=== PATIENT | male | born 1955 | race Caucasian/White ===

== ENCOUNTER 2017-11-07 12:15 | Emergency (ER) | payer OTHER, SELFPAY ==
[2017-11-07] VITALS (10 sets, daily range): BP systolic 97–149; BP diastolic 56–82; PULSE 70–128; RESP 14–19; TEMP 37.1; O2SAT 95–99
--- NOTE | 2017-11-07 12:26 | ED.ARRPALP ---
HPI - Arrhythmia/Palpitations General Chief Complaint: Arrhythmia/Palpitations Stated Complaint: Accelerated heart rate Time Seen by Provider: 11/07/17 12:18 Source: patient Mode of arrival: ambulatory Limitations: no limitations History of Present Illness HPI narrative: Patient presents to the emergency department today from an outside clinic for evaluation of palpitations, racing heart as well as chest pressure, dizziness, lightheadedness, and shortness of breath. He denies any history of the same other than the past few days to weeks. He denies any significant, caffeine, nicotine, or alcohol intake. MD complaint: rapid heart beat and heart racing Onset (ago): day(s) Duration: constant Severity: moderate Associated symptoms: chest pain, shortness of breath and nausea Related Data Previous Rx's Medication Instructions Recorded aspirin 81 mg PO DAILY #90 tab 11/07/17 metoprolol tartrate [Lopressor] 25 mg PO BID #30 tab 11/07/17 Allergies Allergy/AdvReac Type Severity Reaction Status Date / Time bacitracin AdvReac Verified 11/07/17 12:24 [From Neosporin ([id number])] neomycin AdvReac Verified 11/07/17 12:24 [From Neosporin ([id number])] polymyxin B AdvReac Verified 11/07/17 12:24 [From Neosporin ([id number])] Review of Systems Review of Systems All systems reviewed & are unremarkable except as noted in HPI and below Constitutional Denies chills, Denies fever(s), Denies lethargy and Denies weakness ENT Ears, Nose, Mouth, and Throat: Denies change in voice, Denies neck pain and Denies sore throat Cardiovascular Reports chest pain, Reports rapid heart rate, Reports irregular heart rhythm, Reports lightheadedness, Reports palpitations, Reports dyspnea, Denies dyspnea on exertion and Denies orthopnea Respiratory Denies cough, Reports dyspnea, Denies dyspnea on exertion and Denies wheezing Gastrointestinal Gastrointestinal: Denies abdominal pain, Denies change in bowel habits, Denies diarrhea, Denies nausea and Denies vomiting Musculoskeletal Denies neck pain Neurologic Denies confusion and Denies weakness Psychiatric Denies anxiety, Denies confusion, Denies depression, Denies homicidal ideation and Denies suicidal ideation Endocrine Reports palpitations Hematologic/Lymphatic Denies easy bruising Allergic/Immunologic Denies wheezing Exam Initial Vital Signs Initial Vital Signs: Vital Signs Temperature 98.7 F 11/07/17 12:24 Pulse Rate 128 H 11/07/17 12:24 Respiratory Rate 18 11/07/17 12:24 Blood Pressure 149/82 H 11/07/17 12:24 Pulse Oximetry 98 11/07/17 12:24 Const General: cooperative and well developed Nutritional Appearance: well nourished Orientation: alert, awake, oriented x3 and not confused HENSC Head: normocephalic and atraumatic Ears: external ears normal and TM's normal bilaterally Nose: external nose normal and No nasal discharge Face and sinus: sinuses nontender, face symmetric, no sinus tenderness and No dry mucous membranes Mouth: oral mucosae normal and moist mucous membranes Teeth and gingiva: dentition normal Throat: tonsils normal and uvula midline Eyes General: appearance normal, both eyes and all related structures Eyelids: eyelids normal Conjunctivae: conjunctivae normal Sclera: sclerae normal Pupils: PERRL EOM: EOM intact bilaterally Neck Neck: normal visual inspection, trachea midline, No lymphadenopathy, No midline deformity and No JVD Lymphatic: No lymphedema Resp Effort & Inspection: normal respiratory effort, able to speak in complete sentences, no respiratory distress and no use of accessory muscles Auscultation: clear to auscultation bilaterally, no rales, no rhonchi and no wheezes Cardio Rate: tachycardic Rhythm: abnormal rhythm Heart Sounds: no click, no gallops, no murmurs and no rubs Pulses: normal peripheral pulses GI Inspection: non-distended Palpation: soft, no hepatosplenomegaly, No guarding, No pulsatile mass and No tender Auscultation: normal bowel sounds Skin General: no rashes or lesions noted, No jaundice and No petechiae Neuro General: alert, oriented x3 and gait normal Speech: speech normal Extrem General: full ROM, no clubbing, cyanosis or edema, no pedal edema and no calf tenderness Course Orders Ordered: ED Orders 11/07/17 12:21 Complete Blood Count AUTO DIFF Stat Thyroid Stimulating Hormone Stat 11/07/17 12:27 XR chest 1V Stat 11/07/17 12:29 Basic Metabolic Panel Stat Magnesium Stat Troponin with CK Cardiac Panel Stat Discontinued Medications Diltiazem HCl (Cardizem) 10 mg IV NOW ONE Stop: 05/17/18 12:28 Last Admin: 11/07/17 12:34 Dose: 10 mg Sodium Chloride (Normal Saline 0.9%) 1,000 mls @ 150 mls/hr IV CONT GABRIELE Last Infusion: 11/07/17 13:54 Dose: 0 mls/hr Admin: 11/07/17 12:34 Dose: 150 mls/hr Reevaluation(s) Reevaluation #1: Patient had a decrease in heart rate into the 80s and 90s after Cardizem was administered but still was in atrial flutter, but now at a 4-1 rate. He still had chest pain, pressure and felt terrible. Given his ongoing pain we elected to set up for procedural sedation and electrocardioversion Reevaluation #2: Prior to cardioversion a modified Valsalva maneuver was performed and the patient had a conversion to a normal sinus rhythm with a rate in the 70s Vital Signs - 8 hr 11/07/17 12:24 11/07/17 12:32 11/07/17 12:40 Temperature 98.7 F Pulse Rate 128 H 125 H 118 H Respiratory Rate 18 18 18 Blood Pressure 149/82 H Blood Pressure [Left Arm] 115/69 101/56 L Pulse Oximetry 98 99 98 11/07/17 12:45 11/07/17 12:50 11/07/17 12:55 Temperature Pulse Rate 108 H 111 H 96 H Respiratory Rate 18 14 14 Blood Pressure Blood Pressure [Left Arm] 108/72 112/66 97/61 Pulse Oximetry 99 11/07/17 13:01 11/07/17 13:11 11/07/17 13:29 Temperature Pulse Rate 94 H 118 H 77 Respiratory Rate 19 18 17 Blood Pressure Blood Pressure [Left Arm] 109/69 106/62 104/69 Pulse Oximetry 95 99 98 11/07/17 13:53 Temperature Pulse Rate 70 Respiratory Rate 18 Blood Pressure Blood Pressure [Left Arm] 103/66 Pulse Oximetry MDM - Arrhythmia/Palpitations Differential Diagnosis Differential diagnosis: Likely palpitations, anxiety, artial fibrillation and artial flutter Medical Records Attestation: I reviewed the patient's medical records. Lab Data Attestation: I reviewed the patient's lab results. Result diagrams: 11/07/17 12:21 11/07/17 12:29 Lab Results 05/17/18 05/17/18 05/17/18 Range/Units 12:21 12:21 12:29 WBC 6.2 (4.5-11.0) X10^3/uL RBC 4.38 L (4.5-5.9) X10^6/uL Hgb 14.1 (13.5-17.5) g/dL Hct 39.5 L (41-53) % MCV 90.1 (80-100) fL MCH 32.2 (26-34) PG MCHC 35.7 (30-36) % RDW 13.5 (11.6-14.8) % Plt Count 437 H (150-400) X10^3/uL Neut % (Auto) 68.6 (50-75) % Lymph % (Auto) 15.9 L (25-40) % [place] % (Auto) 12.6 (3-14) % Eos % (Auto) 2.3 (2-4) % Baso % (Auto) 0.6 (0-2) % Neut # (Auto) 4300 (7797-1166) /uL Sodium 140 (137-145) mmol/L Potassium 3.9 (3.4-5.1) mmol/L Chloride 102.0 (98-107) mmol/L Carbon Dioxide 28.0 (22-32) mmol/L BUN 15.0 (9-20) mg/dL Creatinine 0.80 (0.66-1.25) mg/dL Estimated GFR > 60.0 (>60) mL/min BUN/Creatinine Ratio 18.8 (6-22) Glucose 85 (80-110) mg/dL Calcium 9.2 (8.4-10.2) mg/dL Magnesium 2.4 H (1.6-2.3) mg/dL Total Creatine Kinase 103 (55-170) U/L CK-MB (CK-2) 1.49 (<2.37) ng/mL CK-MB (CK-2) Rel Index 1.4 L (1.5-5.0) % Troponin I < 0.012 (0.01-0.034) ng/mL TSH 1.72 (0.47-4.68) uIU/mL ECG Data Attestation: I personally reviewed and interpreted this ECG as follows: Interpretation: Atrial Flutter 140s. No ischemia/ectopy. No ST segmental or T-wave inversions consistent with ischemia EKG 2: Normal sinus rhythm in the 70s. No ST segmental or T-wave inversions. Improved from prior Discharge Plan Departure Patient Disposition: Home, Self-Care Clinical Impression: Atrial flutter Discharge Date/Time: 11/07/17 14:14 Interventions: ED Discharge Assessment Last Done: 11/07/17 14:13 Instructions: Atrial Flutter Activity Restrictions/Additional Instructions: *You have been diagnosed with [ atrial flutter ] *What to do: Call the electronic science teacher office listed below *Take medications as directed *Return to ER if you should have any new, worsening or concerning symptoms Prescriptions: New metoprolol tartrate [Lopressor] 50 mg tablet 25 mg PO BID Qty: 30 RF: 0 aspirin 81 mg tablet,chewable 81 mg PO DAILY Qty: 90 RF: 0 Referrals: Butch Herring MD [Physician] -
--- NOTE | 2017-11-07 12:27 | DI.RAD.S_ITS ---
PROCEDURE: XR CHEST 1V INDICATIONS: chest pain TECHNIQUE: One view of the chest was acquired. COMPARISON: None. FINDINGS: Surgical changes and devices: None. Lungs and pleura: No pleural effusions or pneumothorax. Lungs are clear. Mediastinum: Mediastinal contours appear normal. Heart size is borderline enlarged. Bones and chest wall: No suspicious bony lesions. Overlying soft tissues appear unremarkable. IMPRESSION: No acute cardiopulmonary process is evident. Dictated by: Sancho Rodríguez M.D. on 11/07/2017 at 12:57 Approved by: Sancho Rodríguez M.D. on 11/07/2017 at 12:58
--- NOTE | 2017-11-07 12:27 | DIET.PN ---
pt arrives with ekg that was done by dr montalvo.
[2017-11-07] MEDS: SODIUM CHLORIDE 0.9% 1,000 ML 150 ML IV (12:34)
[2017-11-07] MEDS: dilTIAZem 25 MG/5 ML SDV 10 MG IV (12:34)
[2017-11-07 12:53] LABS: Add Manual Diff / Slide Review NO; Basophils Percent Auto 0.6 % (0-2); Eosinophils Percent Auto 2.3 % (2-4); Hematocrit 39.5 % (41-53); Hemoglobin 14.1 g/dL (13.5-17.5); Lymphocytes Percent Auto 15.9 % (25-40); Mean Corpuscular HGB Conc 35.7 % (30-36); Mean Corpuscular Hemoglobin 32.2 PG (26-34); Mean Corpuscular Volume 90.1 fL (80-100); Monocytes Percent Auto 12.6 % (3-14); Neutrophils Absolute Auto 4300 /uL (3000-5900); Neutrophils Percent Auto 68.6 % (50-75); Platelet Count 437 X10^3/uL (150-400); Red Blood Cell Count 4.38 X10^6/uL (4.5-5.9); Red Cell Distribution Width 13.5 % (11.6-14.8); White Blood Cell Count 6.2 X10^3/uL (4.5-11.0)
[2017-11-07 13:00] LABS: BUN Creatinine Ratio 18.8 (6-22); Calcium 9.2 mg/dL (8.4-10.2); Creatine Kinase 103 U/L (55-170); Estimated Glomerular Filt Rate > 60.0 mL/min (>60); Glucose 85 mg/dL (80-110); HEMOLYSIS < 15 (0-50); Magnesium 2.4 mg/dL (1.6-2.3); Potassium 3.9 mmol/L (3.4-5.1); Sodium 140 mmol/L (137-145)
[2017-11-07 13:12] LABS: Troponin I < 0.012 ng/mL (0.01-0.034)
[2017-11-07 13:14] LABS: CKMB % Relative Index 1.4 % (1.5-5.0); Creatine Kinase MB 1.49 ng/mL (<2.37)
[2017-11-07 13:38] LABS: Thyroid Stimulating Hormone 1.72 uIU/mL (0.47-4.68)
--- NOTE | 2017-11-07 15:10 | ED_ITS ---
HPI - Arrhythmia/Palpitations General Chief Complaint: Arrhythmia/Palpitations Stated Complaint: Accelerated heart rate Time Seen by Provider: 11/07/17 12:18 Source: patient Mode of arrival: ambulatory Limitations: no limitations History of Present Illness HPI narrative: Patient presents to the emergency department today from an outside clinic for evaluation of palpitations, racing heart as well as chest pressure, dizziness, lightheadedness, and shortness of breath. He denies any history of the same other than the past few days to weeks. He denies any significant, caffeine, nicotine, or alcohol intake. MD complaint: rapid heart beat and heart racing Onset (ago): day(s) Duration: constant Severity: moderate Associated symptoms: chest pain, shortness of breath and nausea Related Data Previous Rx's Medication Instructions Recorded aspirin 81 mg PO DAILY #90 tab 11/07/17 metoprolol tartrate [Lopressor] 25 mg PO BID #30 tab 11/07/17 Allergies Allergy/AdvReac Type Severity Reaction Status Date / Time bacitracin AdvReac Verified 11/07/17 12:24 [From Neosporin ([id number])] neomycin AdvReac Verified 11/07/17 12:24 [From Neosporin ([id number])] polymyxin B AdvReac Verified 11/07/17 12:24 [From Neosporin ([id number])] Review of Systems Review of Systems All systems reviewed & are unremarkable except as noted in HPI and below Constitutional Denies chills, Denies fever(s), Denies lethargy and Denies weakness ENT Ears, Nose, Mouth, and Throat: Denies change in voice, Denies neck pain and Denies sore throat Cardiovascular Reports chest pain, Reports rapid heart rate, Reports irregular heart rhythm, Reports lightheadedness, Reports palpitations, Reports dyspnea, Denies dyspnea on exertion and Denies orthopnea Respiratory Denies cough, Reports dyspnea, Denies dyspnea on exertion and Denies wheezing Gastrointestinal Gastrointestinal: Denies abdominal pain, Denies change in bowel habits, Denies diarrhea, Denies nausea and Denies vomiting Musculoskeletal Denies neck pain Neurologic Denies confusion and Denies weakness Psychiatric Denies anxiety, Denies confusion, Denies depression, Denies homicidal ideation and Denies suicidal ideation Endocrine Reports palpitations Hematologic/Lymphatic Denies easy bruising Allergic/Immunologic Denies wheezing Exam Initial Vital Signs Initial Vital Signs: Vital Signs Temperature 98.7 F 11/07/17 12:24 Pulse Rate 128 H 11/07/17 12:24 Respiratory Rate 18 11/07/17 12:24 Blood Pressure 149/82 H 11/07/17 12:24 Pulse Oximetry 98 11/07/17 12:24 Const General: cooperative and well developed Nutritional Appearance: well nourished Orientation: alert, awake, oriented x3 and not confused HENPA Head: normocephalic and atraumatic Ears: external ears normal and TM's normal bilaterally Nose: external nose normal and No nasal discharge Face and sinus: sinuses nontender, face symmetric, no sinus tenderness and No dry mucous membranes Mouth: oral mucosae normal and moist mucous membranes Teeth and gingiva: dentition normal Throat: tonsils normal and uvula midline Eyes General: appearance normal, both eyes and all related structures Eyelids: eyelids normal Conjunctivae: conjunctivae normal Sclera: sclerae normal Pupils: PERRL EOM: EOM intact bilaterally Neck Neck: normal visual inspection, trachea midline, No lymphadenopathy, No midline deformity and No JVD Lymphatic: No lymphedema Resp Effort & Inspection: normal respiratory effort, able to speak in complete sentences, no respiratory distress and no use of accessory muscles Auscultation: clear to auscultation bilaterally, no rales, no rhonchi and no wheezes Cardio Rate: tachycardic Rhythm: abnormal rhythm Heart Sounds: no click, no gallops, no murmurs and no rubs Pulses: normal peripheral pulses GI Inspection: non-distended Palpation: soft, no hepatosplenomegaly, No guarding, No pulsatile mass and No tender Auscultation: normal bowel sounds Skin General: no rashes or lesions noted, No jaundice and No petechiae Neuro General: alert, oriented x3 and gait normal Speech: speech normal Extrem General: full ROM, no clubbing, cyanosis or edema, no pedal edema and no calf tenderness Course Orders Ordered: ED Orders 11/07/17 12:21 Complete Blood Count AUTO DIFF Stat Thyroid Stimulating Hormone Stat 11/07/17 12:27 XR chest 1V Stat 11/07/17 12:29 Basic Metabolic Panel Stat Magnesium Stat Troponin with CK Cardiac Panel Stat Discontinued Medications Diltiazem HCl (Cardizem) 10 mg IV NOW ONE Stop: 05/17/18 12:28 Last Admin: 11/07/17 12:34 Dose: 10 mg Sodium Chloride (Normal Saline 0.9%) 1,000 mls @ 150 mls/hr IV CONT GABRIELE Last Infusion: 11/07/17 13:54 Dose: 0 mls/hr Admin: 11/07/17 12:34 Dose: 150 mls/hr Reevaluation(s) Reevaluation #1: Patient had a decrease in heart rate into the 80s and 90s after Cardizem was administered but still was in atrial flutter, but now at a 4- 1 rate. He still had chest pain, pressure and felt terrible. Given his ongoing pain we elected to set up for procedural sedation and electrocardioversion Reevaluation #2: Prior to cardioversion a modified Valsalva maneuver was performed and the patient had a conversion to a normal sinus rhythm with a rate in the 70s Vital Signs - 8 hr 11/07/17 12:24 11/07/17 12:32 11/07/17 12:40 Temperature 98.7 F Pulse Rate 128 H 125 H 118 H Respiratory Rate 18 18 18 Blood Pressure 149/82 H Blood Pressure [Left Arm] 115/69 101/56 L Pulse Oximetry 98 99 98 11/07/17 12:45 11/07/17 12:50 11/07/17 12:55 Temperature Pulse Rate 108 H 111 H 96 H Respiratory Rate 18 14 14 Blood Pressure Blood Pressure [Left Arm] 108/72 112/66 97/61 Pulse Oximetry 99 11/07/17 13:01 11/07/17 13:11 11/07/17 13:29 Temperature Pulse Rate 94 H 118 H 77 Respiratory Rate 19 18 17 Blood Pressure Blood Pressure [Left Arm] 109/69 106/62 104/69 Pulse Oximetry 95 99 98 11/07/17 13:53 Temperature Pulse Rate 70 Respiratory Rate 18 Blood Pressure Blood Pressure [Left Arm] 103/66 Pulse Oximetry MDM - Arrhythmia/Palpitations Differential Diagnosis Differential diagnosis: Likely palpitations, anxiety, artial fibrillation and artial flutter Medical Records Attestation: I reviewed the patient's medical records. Lab Data Attestation: I reviewed the patient's lab results. Result diagrams: 11/07/17 12:21 11/07/17 12:29 Lab Results 05/17/18 05/17/18 05/17/18 Range/Units 12:21 12:21 12:29 WBC 6.2 (4.5-11.0) X10^3/uL RBC 4.38 L (4.5-5.9) X10^6/uL Hgb 14.1 (13.5-17.5) g/dL Hct 39.5 L (41-53) % MCV 90.1 (80-100) fL MCH 32.2 (26-34) PG MCHC 35.7 (30-36) % RDW 13.5 (11.6-14.8) % Plt Count 437 H (150-400) X10^3/uL Neut % (Auto) 68.6 (50-75) % Lymph % (Auto) 15.9 L (25-40) % [place] % (Auto) 12.6 (3-14) % Eos % (Auto) 2.3 (2-4) % Baso % (Auto) 0.6 (0-2) % Neut # (Auto) 4300 (1648-1237) /uL Sodium 140 (137-145) mmol/L Potassium 3.9 (3.4-5.1) mmol/L Chloride 102.0 (98-107) mmol/L Carbon Dioxide 28.0 (22-32) mmol/L BUN 15.0 (9-20) mg/dL Creatinine 0.80 (0.66-1.25) mg/dL Estimated GFR > 60.0 (>60) mL/min BUN/Creatinine Ratio 18.8 (6-22) Glucose 85 (80-110) mg/dL Calcium 9.2 (8.4-10.2) mg/dL Magnesium 2.4 H (1.6-2.3) mg/dL Total Creatine Kinase 103 (55-170) U/L CK-MB (CK-2) 1.49 (<2.37) ng/mL CK-MB (CK-2) Rel Index 1.4 L (1.5-5.0) % Troponin I < 0.012 (0.01-0.034) ng/mL TSH 1.72 (0.47-4.68) uIU/mL ECG Data Attestation: I personally reviewed and interpreted this ECG as follows: Interpretation: Atrial Flutter 140s. No ischemia/ectopy. No ST segmental or T- wave inversions consistent with ischemia EKG 2: Normal sinus rhythm in the 70s. No ST segmental or T-wave inversions. Improved from prior Discharge Plan Departure Patient Disposition: Home, Self-Care Clinical Impression: Atrial flutter Discharge Date/Time: 11/07/17 14:14 Interventions: ED Discharge Assessment Last Done: 11/07/17 14:13 Instructions: Atrial Flutter Activity Restrictions/Additional Instructions: *You have been diagnosed with [ atrial flutter ] *What to do: Call the vending service technician office listed below *Take medications as directed *Return to ER if you should have any new, worsening or concerning symptoms Prescriptions: New metoprolol tartrate [Lopressor] 50 mg tablet 25 mg PO BID Qty: 30 RF: 0 aspirin 81 mg tablet,chewable 81 mg PO DAILY Qty: 90 RF: 0 Referrals: Butch Herring MD [Physician] -
== END 2017-11-07 14:14 | disposition home or self-care (01) ==
PROVIDERS: Emergency Provider Emergency Medicine; Family Provider Family Medicine; PCP Family Medicine
DX: I48.92 Unspecified atrial flutter (principal)
CPT/HCPCS: 36591; 71045; 80048; 82550; 82553; 83735; 84443; 84484; 85025; 93005; 96361; 96374; 99284; 99285

== ENCOUNTER → 2017-11-21 10:20 | Outpatient (CLI) | payer OTHER, SELFPAY ==
--- NOTE | 2017-11-21 | DI.ECHO.S_ITS ---
[facility] +---------+ [facility] +---------+ : : [address] [place] [address] : : : : [id number] : : : : Phone: [phone]+ Echocardiogram Report + + :Name: WOODROW WALKER Study Date: 11/21/2017 Height: 69 in : :[facility] Weight: 165 lb : : Gender: Male BSA: 1.9 m2 : :: 1955 Age: 62 yrs BP: 104/68 mmHg: :Reason For Study: Atrial flutter : : Performed By: Marta Ibarra : :Referring: KEVIN BRANNON : + + Interpretation Summary The left ventricle is normal in size, wall thickness, and systolic function without any focal wall motion abnormalities. The ejection fraction is estimated to be 60-65%. The right ventricle is normal in size and function. Both atria are normal in size. The right ventricular systolic pressure is estimated at 24 mmHg assuming a right atrial pressure of 3 mm Hg. There is no significant valvular heart disease. The echocardiogram is within normal limits. Procedure: A two-dimensional transthoracic echocardiogram with color flow and Doppler was performed. The study quality was technically adequate. There is no prior echocardiogram noted for this patient. The patient was in normal sinus rhythm during the exam. Left Ventricle: The left ventricle is normal in size, wall thickness, and systolic function without any focal wall motion abnormalities. The ejection fraction is estimated to be 60-65%. Assessment of diastolic parameters indicates normal left ventricular diastolic function and normal filling pressures. Right Ventricle: The right ventricle is normal in size and function. Atria: Both atria are normal in size. The interatrial septum is intact with no evidence for an atrial septal defect. Mitral Valve: The mitral valve is normal in structure and function. There is no mitral regurgitation. Aortic Valve: The aortic valve is trileaflet. The aortic valve opens well. No aortic regurgitation is present. Tricuspid Valve: The tricuspid valve is normal in structure and function. There is trace tricuspid regurgitation. The right ventricular systolic pressure is estimated at 24 mmHg assuming a right atrial pressure of 3 mm Hg. Pulmonic Valve: The pulmonic valve is normal in structure and function. There is no pulmonic valvular regurgitation. Great Vessels: The aortic root is normal size. The ascending aorta is mildly enlarged. The IVC is of normal diameter and collapses greater than 50% with a sniff. This suggests a low right atrial pressure of 3 mm Hg. Pericardium/ Pleura There is no pericardial effusion. There is no pleural effusion. MMode/2D Measurements & Calculations LVIDd: 5.4 cm Ao root diam: 3.7 cm LVIDs: 3.6 cm Aortic Jxn: 3.4 cm FS: 32.4 % asc Aorta Diam: 3.9 cm EPSS: 0.77 cm IVSd: 0.94 cm LVPWd: 0.90 cm LV esquivel. diameter/BSA (cm/m^2): 2.8 LV sys. diameter/BSA (cm/m^2): 1.9 LA dimension: 4.0 cm RA long axis: 5.4 cm LA A2 area: 22.4 cm2 RA area: 21.5 cm2 LA A4 area: 22.2 cm2 RA vol: 72.8 ml LA length (vol): 5.9 cm RA : 38.3 ml/m2 LA vol: 71.2 ml IVC diam: 1.9 cm LA vol index: 37.4 ml/m2 RVDd major: 6.6 cm RVD1 (basal): 4.6 cm RVD2 (mid): 3.6 cm Doppler Measurements & Calculations Ao V2 max: 160.9 cm/sec MV E max syed: 81.8 cm/sec Ao V2 mean: 108.7 cm/sec MV A max syed: 74.7 cm/sec Ao max P.4 mmHg MV E/A: 1.1 Ao mean P.5 mmHg Med Peak E' Syed: 7.6 cm/sec Ao V2 VTI: 32.0 cm E/E' med: 10.8 Lat Peak E' Syed: 10.9 cm/sec E/E' lat: 7.5 E/e' average: 9.1 MV dec time: 0.26 sec MV P1/2t: 78.4 msec TR max syed: 227.6 cm/sec MV P1/2t max syed: 80.6 cm/sec TR max P.7 mmHg MVA(P1/2t): 2.8 cm2 PA V2 max: 88.4 cm/sec PA V2 mean: 55.5 cm/sec PA mean P.5 mmHg PA Accel Time: 0.14 sec Reading Physician:04:35 PM
== END ==
PROVIDERS: Family Provider Family Medicine; PCP Family Medicine; Visit Provider Family Medicine
DX: I48.92 Unspecified atrial flutter (principal)
CPT/HCPCS: 93306

== ENCOUNTER → 2019-06-09 07:51 | Outpatient (CLI) | payer OTHER, SELFPAY ==
--- NOTE | 2019-06-09 | DI.US.S_ITS ---
PROCEDURE: US ABDOMEN COMPLETE INDICATIONS: RIGHT UPPER QUADRANT PAIN TECHNIQUE: Real-time scanning was performed of the abdominal and retroperitoneal organs, with image documentation. COMPARISON: CT, KUB - CT (PN), 09/10/2010, 13:52. FINDINGS: Liver: Liver is diffusely increased in echogenicity. No focal hepatic abnormalities identified. Normal hepatic size. Gallbladder: 2 mobile gallstones present. No gallbladder wall thickening or pericholecystic fluid. Negative sonographic Walter sign. Biliary ducts: Intrahepatic bile ducts are non-dilated. Extrahepatic bile duct caliber measures 3.5 mm. Normal is 6-7 mm or less in diameter, or 10 mm or less post-cholecystectomy. Pancreas: Visualized portions of the pancreas are sonographically normal. Spleen: Spleen is normal in size and homogeneous in echotexture. Kidneys: Kidneys are normal in size and echotexture. Right kidney measures 12.6 cm long; left kidney measures 10.9 cm long. No hydronephrosis or nephrolithiasis. No solid masses. 19 mm simple right renal cyst. Aorta: Visualized aorta is normal in caliber at less than 3 cm. Iliacs: Proximal common iliac arteries are normal in caliber at less than 2.5 cm. IVC: Intrahepatic inferior vena cava is patent. Miscellaneous: No free abdominal fluid. IMPRESSION: 1. Increased hepatic echogenicity compatible with steatosis. 2. Cholelithiasis without evidence of acute cholecystitis. 3. Simple right renal cyst. Dictated by: Vidal Adams [facility] Interpreted: Hernandez Mckeon MD on 06/09/2019 at 9:09 Approved by: Hernandez Mckeon M.D. on 06/09/2019 at 16:33
== END ==
PROVIDERS: PCP Family Medicine; Visit Provider Family Medicine
DX: R10.11 Right upper quadrant pain (principal); K80.20 Calculus of gallbladder without cholecystitis without obstruction; N28.1 Cyst of kidney, acquired
CPT/HCPCS: 76700

== ENCOUNTER → 2020-01-05 11:51 | Outpatient (CLI) | payer OTHER, SELFPAY ==
[2020-01-08 09:13] LABS: COVID19 Sendout Not Detected (Not Detected)
== END ==
PROVIDERS: PCP Family Medicine; Referring Provider Family Medicine; Visit Provider Family Medicine
DX: Z11.59 Encounter for screening for other viral diseases (principal)
CPT/HCPCS: 87635

== ENCOUNTER → 2020-05-09 16:43 | Outpatient (CLI) | payer OTHER, SELFPAY ==
--- NOTE | 2020-05-09 | DI.RAD.S_ITS ---
PROCEDURE: XR KNEE RT 3V INDICATIONS: medial knee pain TECHNIQUE: 3 views of the knee were acquired. COMPARISON: [facility], CR, KNEE 3V LEFT, 11/22/2014, 9:22. FINDINGS: Bones: No fractures or dislocations. No suspicious bony lesions. Soft tissues: No joint effusion. No suspicious soft tissue calcifications. IMPRESSION: A mild degree of degenerative joint space narrowing is noted at the medial compartment on the frontal view, weight-bearing. No effusion or loose body is seen. No trauma is found. Dictated by: Luis Castillo M.D. on 05/09/2020 at 17:05 Approved by: Luis Castillo M.D. on 05/09/2020 at 17:05
== END ==
PROVIDERS: PCP Family Medicine; Referring Provider Family Medicine; Visit Provider Family Medicine
DX: M25.561 Pain in right knee (principal)
CPT/HCPCS: 73562

== ENCOUNTER → 2021-02-28 13:14 | Outpatient (ROUT) | payer OTHER, SELFPAY ==
[2021-02-28 14:01] LABS: COVID19 -Nasal RAPID Negative (Negative)
== END ==
PROVIDERS: Visit Provider Family Medicine
DX: Z20.822 Contact with and (suspected) exposure to COVID-19 (principal)
CPT/HCPCS: 87635

== ENCOUNTER → 2021-03-13 13:31 | Outpatient (ROUT) | payer OTHER, SELFPAY ==
[2021-03-13 16:49] LABS: COVID19 -Nasal RAPID Negative (Negative)
== END ==
PROVIDERS: Visit Provider Family Medicine
DX: Z20.822 Contact with and (suspected) exposure to COVID-19 (principal)
CPT/HCPCS: 87635

== ENCOUNTER → 2021-04-07 11:25 | Outpatient (ROUT) | payer OTHER, SELFPAY ==
[2021-04-07 12:57] LABS: COVID19 -Nasal RAPID Negative (Negative)
== END ==
PROVIDERS: Visit Provider Family Medicine
DX: Z20.822 Contact with and (suspected) exposure to COVID-19 (principal)
CPT/HCPCS: 87635